=== PATIENT | female | born 1990 | race Caucasian/White ===

== ENCOUNTER 2016-08-04 07:48 | Emergency (ER) | payer OTHER ==
[2016-08-04 07:56] VITALS: BP 134/87; BMI 26.3
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
== END 2016-08-04 09:28 | disposition home or self-care (01) ==
LOC: ER 07:54
DX: S62.524A Nondisplaced fracture of distal phalanx of right thumb, initial encounter for closed fracture (principal); S63.501A Unspecified sprain of right wrist, initial encounter; V49.9XXA Car occupant (driver) (passenger) injured in unspecified traffic accident, initial encounter
CPT/HCPCS: 73100; 99282; 99283